=== PATIENT | female | born 1975 | race Caucasian/White ===

== ENCOUNTER 2020-02-17 20:51 | Emergency (ER) | payer BC, OTHER ==
[~2020-02-17] VITALS: Ht 165 cm; Wt 101.8 kg
[~2020-02-17 20:51] MED LIST: ALBU17AE3 IH; CLIN300C3 PO; LRT10T PO; MULT-963 PO; NAPR220T76 PO; OMEP20CA6 PO; PRM25T PO; TRAM50TA2 PO
--- NOTE | 2020-02-17 21:23 | ED Cough/URI ---
General Chief Complaint: Cough/Cold/Flu Symptoms Stated Complaint: FEVER,SOB,COUGH Nursing Triage Note: Patient ambulatory to ER room 9 with complaint of headache, shortness of breath, slight cough and fever that began today. Patient states she took Fioricet at 2 pm with no relief. 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 Patient denies being around anyone that is positive for COVID-19. Sepsis Screen: Possible Severe Sepsis Risk History of Present Illness Date Seen by Provider: Feb 17, 2020 Time Seen by Provider: 20:55 Initial Comments 44-year-old female presents for cough and headache. She has been treating her symptoms with Claritin for seasonal allergies. Today she had more headache related to her sinuses. She took a Fioricet which caused minimal relief in her symptoms. 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 She hasn't traveled outside of the local area. Timing/Duration: this morning Severity/Quality: mild, dry cough Prior Episodes/Possible Cause: occasional episodes Associated Symptoms: cough, headache, nasal congestion Allergies and Home Medications Allergies Coded Allergies: morphine (Unverified Adverse Reaction, Severe, MEAN AND VIOLENT, 04/26/13) Home Medications Albuterol 17 Gm Inh, 2 PUFF IH QID, (Reported) Loratadine 10 Mg Tab, 10 MG PO EVERY EVENING @ 2100, (Reported) Multivitamin 1 Each Tablet, 1 TAB PO EVERY EVENING @ 2100, (Reported) Naproxen Sodium 220 Mg Tablet, 660 MG PO EVERY EVENING @ 2100, (Reported) TAKES 3 TABS ONCE DAILY Omeprazole 20 Mg Capsule.dr, 20 MG PO EVERY EVENING @ 2100, (Reported) Promethazine Hcl 25 Mg Tablet, 25 MG PO EVERY 6-8 HOURS PRN, (Reported) PRN NAUSEA Tramadol Hcl 50 Mg Tablet, 50-100 MG PO QID PRN, (Reported) PRN PAIN TAKES 1 TO 2 TABS FOUR TIMES DAILY PRN Patient Home Medication List Home Medication List Reviewed: Yes Review of Systems Review of Systems Constitutional: see HPI, fever (earlier today, at home. ) EENTM: see HPI, nose congestion Respiratory: see HPI, cough Cardiovascular: no symptoms reported, see HPI; No chest pain Gastrointestinal: no symptoms reported, see HPI; No abdominal pain, No diarrhea, No nausea, No vomiting Genitourinary: no symptoms reported, see HPI Musculoskeletal: no symptoms reported, see HPI Skin: no symptoms reported, see HPI Psychiatric/Neurological: No Symptoms Reported, See HPI All Other Systems Reviewed Negative Unless Noted: Yes Past [id number]-Takuml Hx Past Med/Social Hx: Reviewed Nursing Past Med/Soc Hx Patient Social History Alcohol Use: Occasionally Uses Recreational Drug Use: No Smoking Status: Current Everyday Smoker Type Used: Cigarettes 2nd Hand Smoke Exposure: Yes Recent Foreign Travel: No Contact w/Someone Who Travel: No Recent Infectious Disease Expo: No Recent Hopitalizations: No Physical Abuse: No Sexual Abuse: No Mistreated: No Fear: No Immunizations Up To Date Tetanus Booster (TDap): Less than 5yrs Date of Pneumonia Vaccine: Apr 28, 2013 Seasonal Allergies Seasonal Allergies: Yes Past Medical History Surgeries: Yes (RIB ) Breast, Gallbladder, Tonsillectomy Respiratory: Yes Asthma Cardiac: No Neurological: Yes Reproductive Disorders: Yes (CYST ON OVARIES ) Female Reproductive Disorders: Ovarian Cyst Genitourinary: No Gastrointestinal: No (CONSTIPATION ACID REFLUX) Musculoskeletal: Yes (DUE TO HEAD TRAM ) Arthritis Endocrine: No HEENT: No Hearing Impairment: Hard of Hearing Cancer: No Psychosocial: No Depression Integumentary: No Adverse Reaction/Blood Tranf: No (NEVER HAD TRANSFUSION ) Family Medical History No Pertinent Family Hx Physical Exam Vital Signs - First Documented 02/17/20 20:55 Temp 36.6 Pulse 96 Resp 16 B/P (MAP) 150/105 (120) Pulse Ox 98 O2 Delivery Room Air Capillary Refill : Less Than 3 Seconds Height: '" Weight: lbs. oz. kg; 37.00 BMI Method: General Appearance: WD/WN, no apparent distress Eyes: Bilateral Eye Normal Inspection, Bilateral Eye PERRL, Bilateral Eye EOMI HEENT: PERRL/EOMI, normal ENT inspection, TMs normal, pharynx normal, other (trace frontal and maxillary sinus tenderness) Neck: non-tender, full range of motion, supple, normal inspection Respiratory: chest non-tender, lungs clear, normal breath sounds, no respiratory distress Cardiovascular: normal peripheral pulses, regular rate, rhythm, no edema Gastrointestinal: normal bowel sounds, non tender, soft Extremities: normal range of motion, non-tender, normal inspection Neurologic/Psychiatric: no motor/sensory deficits, alert, normal mood/affect, oriented x 3 Skin: normal color, warm/dry Progress/Results/Core Measures Suspected Sepsis Recent Fever Within 48 Hours: Yes Infection Criteria Present: Suspected New Infection New/Unexplained Altered Menta: No Sepsis Screen: Possible Severe Sepsis Risk SIRS Temperature: Pulse: 96 Respiratory Rate: 16 Blood Pressure 150 /105 Mean: 120 Results/Orders Vital Signs/I&O 02/17/20 20:55 Temp 36.6 Pulse 96 Resp 16 B/P (MAP) 150/105 (120) Pulse Ox 98 O2 Delivery Room Air Capillary Refill : Less Than 3 Seconds Blood Pressure Mean: 120 Departure Impression Primary Impression: Sinus headache Additional Impression: Allergic rhinitis Qualified Codes: J30.2 - Other seasonal allergic rhinitis Disposition: HOME, SELF-CARE Condition: Improved Departure-Patient Inst. Decision time for Depature: 21:15 Referrals: PRASANNA TOLBERT MD (PCP) Primary Care Physician Patient Instructions: Cough, Adult (DC), Seasonal Allergies (DC) Add. Discharge Instructions: Increase fluids and rest. Use Mucinex, continue your Claritin, and begin a steroid nasal spray (Nasonex or Flonase). Alternate between ibuprofen 600 mg and Tylenol 650 mg every 4 hours for headache. Follow-up with a primary care provider if your symptoms are not improving or worsen. Call ahead if you're having shortness of breath, cough and fever, or any other symptoms thinking that you may have COVID-19. Return to the Emergency Dept for new, urgent health care needs. All discharge instructions reviewed with patient and/or family. Voiced understanding. PRATEEK REYES Feb 17, 2020 21:23
[2020-02-17 21:41] VITALS: BP 127/87
== END 2020-02-17 21:43 | disposition home or self-care (01) ==
LOC: EDUNIT# 20:51 → ER 20:53
DX: R51 Headache (principal); J45.909 Unspecified asthma, uncomplicated; F17.210 Nicotine dependence, cigarettes, uncomplicated; F32.9 Major depressive disorder, single episode, unspecified; M19.91 Primary osteoarthritis, unspecified site; Z90.89 Acquired absence of other organs
CPT/HCPCS: 99282